=== PATIENT | female | born 1965 | race Caucasian/White ===

== ENCOUNTER 2017-04-17 07:21 | Emergency (ER) | payer SELFPAY ==
[~2017-04-17] VITALS: Ht 175.3 cm; Wt 97.5 kg
[2017-04-17 07:32] VITALS: BP 134/81
[2017-04-17] MEDS ORDERED: HYDROcodone/APAP 5/325MG 1 TAB TABLET PO ONE (07:45)
[2017-04-17] MEDS ORDERED: HYDR-971 PO (07:48)
[2017-04-17] MEDS ORDERED: CLIN150C14 PO (07:48)
--- NOTE | 2017-04-17 07:49 | PHYS DOC ---
Past Medical History Past Surgical History: Other Additional Past Surgical Histo: tubual Smokin Pack Per Day Alcohol Use: None Drug Use: None Adult General Chief Complaint Chief Complaint: ABSCESS HPI HPI Patient is a 51 year old female presents to the emergency department with a history of abscess to the left upper abdomen the area appears to be the size of a grapefruit, the area also has increase redness around the area. No drainage noted. Pain is a 10/10 she took excerdrin for the pain yesterday,. She states she has been placing a heating pad over the site with no relief. He tetanus is not up to date as she is allergic to the medication. Patient denies fever, chills, nausea or vomiting. Review of Systems Review of Systems Constitutional: Denies fever or chills [] Eyes: Denies change in visual acuity, redness, or eye pain [] HENT: Denies nasal congestion or sore throat [] Respiratory: Denies cough or shortness of breath [] Cardiovascular: No additional information not addressed in HPI [] GI: Denies abdominal pain, nausea, vomiting, bloody stools or diarrhea [] : Denies dysuria or hematuria [] Musculoskeletal: Denies back pain or joint pain [] Integument: Denies rash or skin lesions. Abscess to the left upper abd Neurologic: Denies headache, focal weakness or sensory changes [] Endocrine: Denies polyuria or polydipsia [] All other systems were reviewed and found to be within normal limits, except as documented in this note. Physical Exam Physical Exam Constitutional: Well developed, well nourished, no acute distress, non-toxic appearance. [] HENT: Normocephalic, atraumatic, bilateral external ears normal, oropharynx moist, no oral exudates, nose normal. [] Eyes: PERRLA, EOMI, conjunctiva normal, no discharge. [] Neck: Normal range of motion, no tenderness, supple, no stridor. [] Cardiovascular:Heart rate regular rhythm, no murmur [] Lungs & Thorax: Bilateral breath sounds clear to auscultation [] Abdomen: Bowel sounds normal, soft, tenderness noted to the left upper abdominal area, no masses, no pulsatile masses. [] Skin: Warm, dry, no erythema, no rash. Abscess to the left upper abdominal area the area is the size of the grapefruit, area is very hard, nonfluctuant. Patient does have redness to the outer area with no tenderness noted. Extremities: No tenderness, no cyanosis, no clubbing, ROM intact, no edema. [] Neurologic: Alert and oriented X 3, normal motor function, normal sensory function, no focal deficits noted. [] Psychologic: Affect normal, judgement normal, mood normal. [] EKG EKG [] Radiology/Procedures Radiology/Procedures [] Course & Med Decision Making Course & Med Decision Making Pertinent Labs and Imaging studies reviewed. (See chart for details) She will be discharged home on clindamycin, hydrocodone for severe pain and discomfort. Recommended warm moist packs 20 minutes at a time 5 times a day. Recommended that she follow up with primary care physician in the next 2-5 days. Patient was recommended to return to the emergency department [] I've spoken with the patient and/or caregivers. I've explained the patient's condition, diagnosis and treatment plan based on information available to me at this time. I've answered the patient's and/or caregivers questions and addressed any concerns. The patient and/or caregivers have a good understanding the patient's diagnosis, condition and treatment plan as can be expected at this point. Vital signs have been stabilized. The patient's condition is stable for discharge from the emergency department. The patient will pursue further outpatient evaluation with her primary care provider or other designated consulting physician as outlined in the discharge instructions. Patient and/or caregivers are agreeable to this plan of care and follow-up instructions have been explained in detail. The patient and/or caregivers have received these instructions in written format and expressed understanding of these discharge instructions. The patient and her caregivers are aware that if any significant change in condition or worsening of symptoms should prompt him to immediately return to this of the closest emergency department.~ If an emergent department is not readily available I would encourage him to call 911. Kevin Disclaimer Kevin Disclaimer This electronic medical record was generated, in whole or in part, using a voice recognition dictation system. Departure Departure Impression: Primary Impression: Abscess Disposition: HOME, SELF-CARE Condition: STABLE Patient Instructions: Abscess, [id number] Additional Instructions: Activity as tolerate Medication as prescribed [place] will cause drowsiness do not take if you need to be alert and oriented Warm moist packs to the left upper abdominal area 5 times a day for 20 minutes at a time Followup with your primary care provider in 3-5 days Return to emergency department as needed for signs and symptoms that become worse. Scripts Hydrocodone/Apap 5-325 (NORCO 5-325 TABLET) 1 Each Tablet 1 TAB PO PRN Q6HRS Y for PAIN, #15 TAB 0 Refills Prov: VIKTORIYA VOSS APRN 04/17/17 Clindamycin Hcl (CLINDAMYCIN HCL) 150 Mg Capsule 3 CAP PO TID for 10 Days, #90 CAP Prov: VIKTORIYA VOSS APRN 04/17/17 VIKTORIYA VOSS APRN Apr 17, 2017 07:49
== END 2017-04-17 08:00 | disposition home or self-care (01) ==
LOC: ER 07:21
DX: L02.211 Cutaneous abscess of abdominal wall (principal); F17.210 Nicotine dependence, cigarettes, uncomplicated
CPT/HCPCS: 99283